=== PATIENT | male | born 1995 | race Caucasian/White ===

== ENCOUNTER 2025-02-01 21:02 | Emergency (ER) | payer SELFPAY ==
[~2025-02-01] VITALS: Ht 185.4 cm; Wt 140.6 kg
[2025-02-01 22:10] LABS: BILIRUBIN Negative (Negative); BLOOD Negative (Negative); CLARITY Cloudy (Clear); COLOR Yellow (Yellow); GLUCOSE Negative (Negative); KETONE Trace (Negative); LEUKO ESTERASE Negative (Negative); NITRITE Negative (Negative); SPECIFIC GRAVITY >= 1.030 (1.001-1.030)
[2025-02-01 22:16] LABS: WBC 0-2 wbc/hpf (0-5)
[2025-02-01 22:17] LABS: RBC 0-2 rbc/hpf (0-2)
[2025-02-01] MEDS ORDERED: PREDNISONE20 M1 PO (22:21)
[2025-02-01] MEDS ORDERED: methylPREDNISolone sod succ 125 MG VIAL IM ONE (22:25)
[2025-02-01] MEDS ORDERED: Acetaminophen/Hydrocodone 5 MG/325 MG TABLET PO ONE (22:25)
== END 2025-02-01 22:35 | disposition home or self-care (01) ==
LOC: ED 21:02
PROVIDERS: Nurse Practitioner Family
DX: M54.41 Lumbago with sciatica, right side (principal); M79.604 Pain in right leg; Z88.0 Allergy status to penicillin